=== PATIENT | female | born 1960 | race African-American/Black ===

== ENCOUNTER 2024-06-08 04:07 | Emergency (ER) | payer OTHER, MEDICAID ==
[~2024-06-08] VITALS: Ht 167.6 cm; Wt 58.0 kg
[2024-06-08 04:20] VITALS: O2SAT 100
[2024-06-08 04:25] VITALS: BP 152/90; PULSE 90; RESP 16; TEMP 98.3; O2SAT 99
[2024-06-08] MEDS: LIDOCAINE HCL/PF 1% 10 MG/ML 5ML VIAL INFIL ONE (06:35)
== END 2024-06-08 07:08 | disposition left against medical advice (07) ==
LOC: ER 04:07
DX: S60.450A Superficial foreign body of right index finger, initial encounter (principal); E11.9 Type 2 diabetes mellitus without complications; I10 Essential (primary) hypertension; J45.909 Unspecified asthma, uncomplicated; Z98.890 Other specified postprocedural states; X58.XXXA Exposure to other specified factors, initial encounter; Y93.89 Activity, other specified; Y92.89 Other specified places as the place of occurrence of the external cause; Y99.8 Other external cause status
CPT/HCPCS: 99284; J3490